=== PATIENT | male | born 1985 | race Caucasian/White ===

== ENCOUNTER → 2016-06-24 | Outpatient (CLI) | payer OTHER ==
--- NOTE | 2016-06-28 08:38 | SLEEPCENT ---
DATE OF PROCEDURE: 06/24/2016 ORDERED BY: Erica Saucedo NP Nocturnal polysomnography was performed for evaluation of sleep physiology in light of concern for obstructive sleep apnea syndrome in this patient with a history of snoring and excessive somnolence. 8 hours and 18 minutes of data were reviewed. There were 452 minutes of sleep identified. Sleep latency was mildly prolonged at 15 minutes. Rapid eye movement (REM) was normal at 86 minutes. Sleep architecture was good with 4 REM periods. Minimal fragmentation. Overall sleep efficiency was 91.7%. The patient's electrocardiogram (EKG) showed a sinus rhythm with an average heart rate of 75 beats per minute. Electroencephalogram (EEG) showed normal waveforms for awake and sleep. There were only 21 respiratory events identified of 10 seconds in duration or greater for an apnea hypopnea index of 2.8. Snoring was noted throughout the study but respiratory related arousals occurred only 2.1 times per hour. There was some limb activity but no trains of events. Limb movement arousal index was borderline at 7.3. Oxygen desaturations remained 90% plus. IMPRESSION: Normal nocturnal polysomnography with snoring.
== END ==
LOC: M SLEEP 20:05
PROVIDERS: ATTEND Internal Medicine Pulmonary Disease
DX: G47.30 Sleep apnea, unspecified (principal)

== ENCOUNTER 2017-01-15 18:50 | Emergency (ER) | payer OTHER ==
[~2017-01-15] VITALS: Ht 182.9 cm; Wt 96.4 kg
[2017-01-15 18:50] VITALS: BP 132/87
[2017-01-15] MEDS ORDERED: MONT10TA2 (18:59)
[2017-01-15] MEDS ORDERED: RANI150T (18:59)
[2017-01-15] MEDS ORDERED: ADVA115A (18:59)
[2017-01-15] MEDS ORDERED: ALBU17IN (18:59)
[2017-01-15 21:39] LABS: ALBUMIN 4.2 GM/DL (3.2-5.2); ALKALINE PHOSPHATASE 83 U/L (45-117); ALT/SGPT 50 U/L (12-78); ANION GAP 4 MEQ/L (8-16); AST/SGOT 20 U/L (15-37); BILIRUBIN,DIRECT 0.1 MG/DL (0.0-0.2); BILIRUBIN,TOTAL 0.5 MG/DL (0.2-1.0); BLOOD UREA NITROGEN 11 MG/DL (7-18); CALCIUM LEVEL 9.1 MG/DL (8.5-10.1); CARBON DIOXIDE LEVEL 30 MEQ/L (21-32); CHLORIDE LEVEL 107 MEQ/L (98-107); CREATININE FOR GFR 0.77 MG/DL (0.70-1.30); GLOMERULAR FILTRATION RATE > 60.0 (>60); GLUCOSE, FASTING 89 MG/DL (70-105); POTASSIUM SERUM 4.1 MEQ/L (3.5-5.1); SODIUM LEVEL 141 MEQ/L (136-145); TOTAL PROTEIN 7.7 GM/DL (6.4-8.2)
[2017-01-15 21:50] LABS: MEAN CORPUSCULAR HEMOGLOBIN 29.5 pg (27.0-33.0); MEAN CORPUSCULAR HGB CONC 33.2 g/dl (32.0-36.5); MEAN CORPUSCULAR VOLUME 88.8 fl (80.0-96.0)
[2017-01-15 22:04] LABS: METHADONE URINE NEGATIVE (NEGATIVE)
== END 2017-01-15 22:56 | disposition home or self-care (01) ==
LOC: M ED 18:50
DX: F43.0 Acute stress reaction (principal)